=== PATIENT | female | born 1990 | race Caucasian/White ===

== ENCOUNTER 2021-03-02 09:02 | Emergency (ER) | payer MEDICAID, MEDICARE ==
[~2021-03-02] VITALS: Ht 167.6 cm; Wt 86.0 kg
[2021-03-02 09:26] VITALS: BP 115/78
== END 2021-03-02 10:32 | disposition home or self-care (01) ==
LOC: ER 09:21
DX: Z04.89 Encounter for examination and observation for other specified reasons (principal)
CPT/HCPCS: 99283